=== PATIENT | male | born 1965 | race Caucasian/White ===

== ENCOUNTER 2017-02-14 06:06 | Emergency (ER) | payer OTHER ==
[~2017-02-14] VITALS: Ht 177.8 cm; Wt 118.0 kg
[2017-02-14] MEDS ORDERED: MAGNESIUM/ALUMINUM HYDROXIDE/SIMETHICONE 30ML UDC PO STA (07:00)
[2017-02-14] MEDS ORDERED: VISCOUS LIDOCAINE 2% 15 ML UDC MM ONE (07:00)
[2017-02-14 07:17] LABS: CLARITY URINE CLEAR (CLEAR); COLOR URINE YELLOW (YELLOW); GLUCOSE URINE NEGATIVE (NEGATIVE); KETONES URINE NEGATIVE (NEGATIVE); LEUKOCYTE ESTERASE URINE NEGATIVE (NEGATIVE); NITRITE URINE NEGATIVE (NEGATIVE); OCCULT BLOOD URINE NEGATIVE (NEGATIVE); PROTEIN URINE NEGATIVE (NEGATIVE); SPECIFIC GRAVITY URINE 1.018 (1.005-1.030); UROBILINOGEN URINE 0.2 E.U./dL (0.2-1.0)
[2017-02-14 07:18] LABS: BASOPHILS % 0.5 % (0.0-2.0); EOSINOPHILS % 1.3 % (0.0-5.0); HEMATOCRIT. 45.1 % (42.0-52.0); HEMOGLOBIN. 15.6 g/dL (14.0-18.0); LYMPHOCYTES % 22.1 % (20.0-50.0); MEAN CORPUSCULAR HEMOGLOBIN 30.4 pg (28.0-32.0); MEAN CORPUSCULAR VOLUME 87.8 fL (80.0-94.0); MEAN PLATELET VOLUME 8.7 fl (7.4-10.4); MONOCYTES % 8.2 % (2.0-8.0); NEUTROPHILS % 67.9 % (40.0-76.0); PLATELET 243 x1000/uL (130-400); RED BLOOD CELL COUNT 5.13 mill/uL (4.7-6.1)
[2017-02-14 07:34] LABS: CARBON DIOXIDE 26 mEq/L (21-32); CHLORIDE 102 mEq/L (98-107); TROPONIN I < 0.02 ng/mL (0.00-0.04)
[2017-02-14 11:23] VITALS: BP 134/87
== END 2017-02-14 11:26 | disposition home or self-care (01) ==
LOC: ER 06:07
DX: R10.13 Epigastric pain (principal); R00.2 Palpitations; E11.9 Type 2 diabetes mellitus without complications; K76.0 Fatty (change of) liver, not elsewhere classified; I10 Essential (primary) hypertension
CPT/HCPCS: 36415; 76705; 80053; 81003; 82962; 83690; 84484; 85025; 93005; 99285; Z7610

== ENCOUNTER 2023-07-02 22:44 | Emergency (ER) | payer BC, OTHER ==
[~2023-07-02] VITALS: Ht 177.8 cm; Wt 108.0 kg
[2023-07-02 22:55] VITALS: O2SAT 97
[2023-07-02 23:30] LABS: BASOPHILS % 0.3 % (0.0-2.0); EOSINOPHILS % 0.5 % (0.0-5.0); HEMATOCRIT. 41.9 % (42.0-52.0); HEMOGLOBIN. 14.8 g/dL (14.0-18.0); MEAN CORPUSCULAR HEMOGLOBIN 30.8 pg (28.0-32.0); MEAN CORPUSCULAR HGB CONC 35.2 g/dL (31.0-37.0); MEAN CORPUSCULAR VOLUME 87.3 fL (80.0-94.0); MONOCYTES % 6.6 % (2.0-8.0); NEUTROPHILS % 75.6 % (40.0-76.0); PLATELET 240 x1000/uL (130-400); RED CELL DISTRIBUTION WIDTH 13.3 % (11.6-14.6)
[2023-07-02 23:31] LABS: CLARITY URINE CLEAR (CLEAR); COLOR URINE YELLOW (YELLOW); GLUCOSE URINE NEGATIVE (NEGATIVE); KETONES URINE TRACE (NEGATIVE); LEUKOCYTE ESTERASE URINE NEGATIVE (NEGATIVE); NITRITE URINE NEGATIVE (NEGATIVE); OCCULT BLOOD URINE 1+ (NEGATIVE); PROTEIN URINE NEGATIVE (NEGATIVE); SPECIFIC GRAVITY URINE 1.022 (1.005-1.030)
[2023-07-03] LABS: ALANINE AMINOTRANSFERASE 39 IU/L (10-49); ASPARTATE AMINOTRANSFERASE 24 IU/L (<34); BILIRUBIN TOTAL 0.7 mg/dL (0.1-1.0); CALCIUM 9.1 mg/dL (8.7-10.4); CARBON DIOXIDE 27 mEq/L (21-32); CHLORIDE 103 mEq/L (98-107); CREATININE 0.9 mg/dL (0.6-1.3); GLUCOSE 156 mg/dL (70-105); POTASSIUM 3.9 mEq/L (3.5-5.1); PROTEIN TOTAL 7.4 g/dL (6.0-8.3); SODIUM 138 mEq/L (136-145); UREA NITROGEN BLOOD 8 mg/dL (9-23)
[2023-07-03] MEDS: ACETAMINOPHEN 325MG TABLET PO ONE
[2023-07-03 01:29] LABS: BACTERIA URINE NONE SEEN; RBC URINE 0-2 /hpf (0-2); SQUAMOUS EPITHELIAL CELL URINE FEW /lpf (RARE/1+); WBC URINE NONE SEEN /hpf (0-2)
[2023-07-03] MEDS ORDERED: NAPR220C61 MT (01:46)
[2023-07-03 02:01] VITALS: BP 167/87; PULSE 75; RESP 19; TEMP 98.9
== END 2023-07-03 02:09 | disposition home or self-care (01) ==
LOC: ER 22:44
DX: N20.0 Calculus of kidney (principal); E11.9 Type 2 diabetes mellitus without complications; I10 Essential (primary) hypertension
CPT/HCPCS: 36415; 74176; 80053; 81003; 85025; 99284

== ENCOUNTER 2024-06-06 07:09 | Emergency (ER) | payer BC ==
[~2024-06-06] VITALS: Ht 177.8 cm; Wt 109.0 kg
[~2024-06-06 07:09] MED LIST: NAPR220C61 MT
[2024-06-06 07:11] VITALS: O2SAT 97
[2024-06-06 07:34] VITALS: BP 158/84; PULSE 80; RESP 18; TEMP 36.9; O2SAT 97
[2024-06-06] MEDS ORDERED: DICYCLOMINE 10 MG/5 ML ORAL SYR PO STA (08:12)
[2024-06-06] MEDS: DICYCLOMINE HCL 10MG CAPSULE PO NR (09:05)
[2024-06-06] MEDS: MAGNESIUM/ALUMINUM HYDROXIDE/SIMETHICONE 30ML UDC PO STA (09:05)
[2024-06-06 09:20] LABS: BASOPHILS % 0.4 % (0.0-2.0); EOSINOPHILS % 1.4 % (0.0-5.0); HEMATOCRIT. 43.7 % (42.0-52.0); MEAN CORPUSCULAR HGB CONC 34.2 g/dL (31.0-37.0); MEAN CORPUSCULAR VOLUME 87.8 fL (80.0-94.0); MEAN PLATELET VOLUME 8.7 fl (7.4-10.4); MONOCYTES % 6.7 % (2.0-8.0); NEUTROPHILS % 73.5 % (40.0-76.0); PLATELET 242 x1000/uL (130-400); RED BLOOD CELL COUNT 4.98 mill/uL (4.7-6.1); RED CELL DISTRIBUTION WIDTH 13.2 % (11.6-14.6); WHITE BLOOD COUNT 5.9 x1000/uL (4.5-11.0)
[2024-06-06 09:33] LABS: CHLORIDE 104 mEq/L (98-107); POTASSIUM 4.7 mEq/L (3.5-5.1); SODIUM 140 mEq/L (136-145)
[2024-06-06 09:34] LABS: CALCIUM 9.7 mg/dL (8.7-10.4); CARBON DIOXIDE 29 mEq/L (21-32)
[2024-06-06 09:39] LABS: CREATININE 0.9 mg/dL (0.6-1.3); GLUCOSE 154 mg/dL (70-105); UREA NITROGEN BLOOD 8 mg/dL (9-23)
[2024-06-06 09:40] LABS: TROPONIN I HIGH SENSITIVITY < 4 ng/L (3.0-53)
[2024-06-06] MEDS ORDERED: OMEP20CA14 PO (10:34)
== END 2024-06-06 10:54 | disposition home or self-care (01) ==
LOC: ER 07:22
DX: R10.9 Unspecified abdominal pain (principal); E11.9 Type 2 diabetes mellitus without complications; I10 Essential (primary) hypertension; Z79.899 Other long term (current) drug therapy
CPT/HCPCS: 80048; 83690; 85025; 84484; 36415; 71045; 93005; 99285; Z7610; A4606